=== PATIENT | male | born 1980 | race Caucasian/White ===

== ENCOUNTER 2022-04-24 11:18 | Emergency (ER) | payer OTHER, SELFPAY ==
[2022-04-24 12:09] VITALS: BP 121/84; PULSE 97; RESP 18; TEMP 38.1; O2SAT 98
--- NOTE | 2022-04-24 20:49 | ED.GENADULT ---
HPI - General Adult General Chief complaint: Upper Respiratory Infection Stated complaint: Fatigue,Headache,Cough,Body Aches History of Present Illness HPI narrative: 41 y/o male. PMHx None reported. Presents to [facility] today with acute complaints of cough, congestion, and body aches > the past 72 hours. He also reports to feel 'feverish', although has not had access to home temperature monitoring. No KUMARI, dizziness, focal weakness. No neck pain/stiffness. No chest pain, palpitations, hemoptysis. Mild and intermittent dyspnea. Denies GI upset, N/V/D. Related Data Allergies Allergy/AdvReac Type Severity Reaction Status Date / Time No Known Allergies Allergy Verified 04/24/22 11:58 Review of Systems Review of Systems: All systems reviewed & are unremarkable except as noted in HPI and below: CONSTITUTIONAL: Feels feverish, body aches. HENT: Congestion. RESP: Cough. ? Exam Narrative: GENERAL: Well-appearing, well-nourished, and in no acute distress. HEAD: Normocephalic, atraumatic. EYES: PERRLA, conjunctivae clear. ENT: Mucous membranes moist. Positive PND. Pharyngeal erythema, without swelling or exudative changes, Uvula midline. Palate soft. NECK: Supple. No lymphadenopathy. No meningeal signs. CHEST: Upper airway Rhonchi, cleared w/cough. No respiratory distress. HEART: Regular rate and rhythm. SKIN: Warm, dry, intact NEURO:? Alert and oriented x3. PSYCH: Normal mood and affect Course Course Level of Care: Express Care Visit Vital Signs Vital signs: Vital Signs Temperature 38.1 C H 04/24/22 12:09 Pulse Rate 97 04/24/22 12:09 Respiratory Rate 18 04/24/22 12:09 Blood Pressure 121/84 04/24/22 12:09 Pulse Oximetry 98 04/24/22 12:09 Oxygen Delivery Room Air 04/24/22 12:09 Temperature 38.1 C H 04/24/22 12:09 Pulse Rate 97 04/24/22 12:09 Respiratory Rate 18 04/24/22 12:09 Blood Pressure 121/84 04/24/22 12:09 Pulse Oximetry 98 04/24/22 12:09 Oxygen Delivery Room Air 04/24/22 12:09 Medical Decision Making [facility] Narrative Medical decision making narrative: Differential Diagnosis: Consideration of the following conditions may be warranted for the presenting problem, they are not final diagnoses: upper respiratory infection, otitis media, sinusitis, RSV viral infection, PNA, bronchitis, pharyngitis, Streptococcal sore throat, COVID-19, Influenza, and other. Vital Signs Vital Signs: Vital Signs Temperature 38.1 C H 04/24/22 12:09 Pulse Rate 97 04/24/22 12:09 Respiratory Rate 18 04/24/22 12:09 Blood Pressure 121/84 04/24/22 12:09 Pulse Oximetry 98 04/24/22 12:09 Oxygen Delivery Room Air 04/24/22 12:09 Temperature 38.1 C H 04/24/22 12:09 Pulse Rate 97 04/24/22 12:09 Respiratory Rate 18 04/24/22 12:09 Blood Pressure 121/84 04/24/22 12:09 Pulse Oximetry 98 04/24/22 12:09 Oxygen Delivery Room Air 04/24/22 12:09 Lab Data Labs: Lab Results 04/24/22 Range/Units 12:00 POC SARS CoV-2 Ag Negative (Negative) Discharge Plan Discharge Clinical Impression: Upper respiratory infection, Bronchitis Patient Disposition: Home, Self-Care Condition: Stable Instructions: Antibiotic Form, Upper Respiratory Infection (DC) Prescriptions: New amoxicillin 500 mg capsule 500 mg PO Q8H 10 Days Qty: 30 0RF methylprednisolone [Medrol (Hank)] 4 mg tablets,dose pack See Rx Instructions .ROUTE .COMPLEX Qty: 21 0RF Rx Instructions: orally per package directions albuterol sulfate 90 mcg/actuation HFA aerosol inhaler 1 inh inhalation QID PRN (Reason: shortness of breath or wheezing) Qty: 6.7 0RF Follow-up/Referrals: PHYSICIAN,ELECTRONIC WARFARE OPERATOR [Primary Care Provider] - 1 Week Stand Alone Forms: Work/School Release IP Time of Disposition: 12:31
== END 2022-04-24 12:38 | disposition home or self-care (01) ==
PROVIDERS: Emergency Provider Nurse Practitioner Adult Health
DX: J06.9 Acute upper respiratory infection, unspecified (principal); J40 Bronchitis, not specified as acute or chronic; Z20.822 Contact with and (suspected) exposure to COVID-19
CPT/HCPCS: 87426; 99203; C9803; G0463